=== PATIENT | male | born 1965 | race Caucasian/White ===

== ENCOUNTER 2016-08-10 03:33 | Emergency (ER) | payer SELFPAY ==
[~2016-08-10] VITALS: Ht 182.9 cm; Wt 85.0 kg
[2016-08-10 03:37] VITALS: Ht 182.9 cm; Wt 85.0 kg
[2016-08-10] MEDS ORDERED: HYDROCODONE/APAP (10/325) TAB PO ONE (04:00)
[2016-08-10] MEDS ORDERED: HYDROmorphONE 2 MG TAB PO ONE (04:30)
--- NOTE | 2016-08-10 04:34 | RADRPT ---
PROCEDURE: RIGHT HIP - 2 VIEWS CLINICAL INDICATION: 51-year-old male with right lower extremity pain. TECHNIQUE: AP and frog lateral views of the right hip were performed. The images reviewed on a PAC S workstation. COMPARISON: None. FINDINGS: The right hip appears intact without evidence for acute fracture or dislocation. The proximal porti on of a right femoral intramedullary danielle is noted. The bone marrow mineralization is within normal limits. IMPRESSION: 1. No acute fracture or dislocation. 2. Right femoral intramedullary danielle. .Jerson Chapa MD, MD Date Time Electronically viewed and signed by .Jerson Chapa MD, MD on 08/10/2016 04:33 .M/
--- NOTE | 2016-08-10 04:37 | RADRPT ---
PROCEDURE: RIGHT FEMUR - 5 VIEWS CLINICAL INDICATION: 51-year-old male with right lower extremity pain. TECHNIQUE: AP and cross-table lateral views of the right femur were performed. The images reviewed on a PACS workstation. COMPARISON: Right hip obtained concurrently. FINDINGS: There is a right femoral intramedullary danielle identified traversing a old fracture deformity of the di stal right femoral diaphysis. There is an acute fracture of the distal right femoral diaphysis exte nding through the old fracture with mild displacement. There is a fracture fragment present. There is a halo surrounding the distal femoral intramedullary danielle suggestive of loosening. There are 3 scr ews identified within the distal right femur with the proximal screw noted to be broken. The hip and knee joints appear intact. The bone marrow mineralization is within normal limits. IMPRESSION: 1. Right femoral intramedullary danielle with the distal aspect having a halo suggestive of loosening as well as a broken screw. 2. Acute oblique mildly displaced fracture superimposed upon an old fracture deformity within the d istal right femur. .Jerson Chapa MD, Date Time Electronically viewed and signed by .Jerson Chapa MD, on 08/10/2016 04:37 .M/
[2016-08-10] MEDS ORDERED: SOD CHLORIDE 0.9% 1,000 ML IV STA (04:56)
[2016-08-10] MEDS ORDERED: morphine 10 MG INJ IV ONE (05:00)
[2016-08-10] MEDS ORDERED: HYDROmorphONE 1 MG/ML SYG IM STA (05:03)
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
[2016-08-10 05:14] VITALS: BP 138/89; PULSE 67; RESP 20; TEMP 98.3
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
[2016-08-10] MEDS ORDERED: HYDR2TAB15 PO (05:20)
== END 2016-08-10 05:31 | disposition home or self-care (01) ==
LOC: FTE 03:33 → E/R 05:31
DX: S72.331A Displaced oblique fracture of shaft of right femur, initial encounter for closed fracture (principal); R40.2142 Coma scale, eyes open, spontaneous, at arrival to emergency department; R40.2252 Coma scale, best verbal response, oriented, at arrival to emergency department; R40.2362 Coma scale, best motor response, obeys commands, at arrival to emergency department; W17.89XA Other fall from one level to another, initial encounter; Y92.9 Unspecified place or not applicable
CPT/HCPCS: 73510; 73550; J1170; J7030; 96372